=== PATIENT | male | born 2000 | race Caucasian/White ===

== ENCOUNTER 2018-12-23 23:23 | Emergency (ER) | payer MEDICAID, SELFPAY ==
[2018-12-23 23:26] VITALS: BP 140/64; PULSE 89; RESP 16; TEMP 36.7; O2SAT 97
--- NOTE | 2018-12-23 23:37 | W.ED.GENAD ---
Discharge Plan Disposition Patient Disposition: HOME Condition: Improving Discharge Details Chief Complaint: GenMedical Clinical Impression: Visit for wound check [facility]: Rory Hylton Home Meds and New Rx's Prescriptions: New amoxicillin-pot clavulanate 875-125 mg tablet 1 tab PO BID 7 Days Qty: 14 RF: 0 Discharge Instructions Instructions: Wound Healing and Your Diet (ED) Additional Instructions: Follow-up in surgery clinic on January 02 as planned. Take Augmentin as prescribed. Daily dressing changes as we discussed. Return for recurrent drainage, involvement of fever, or any other acute concerns Medical Decision Making 18-year-old male presents from [facility] where he is in school. He underwent pilonidal cyst excision he states in mid October with Dr Patton at [facility]. He states he then fell down stairs on November 13 and shiela was comparing pictures of his surgical incision with his girlfriend mother who is a nurse who recommended he seek evaluation. He is well-appearing with normal vital signs. He has a surgical incision which is healing by secondary intention without evidence of abscess. He describes having some drainage at home which is not present at this time. He feels reasonable to cover him for developing cellulitis but do feel that the incision appears to be healing well. He has follow-up planned in surgery clinic on January 02. Discussed with him daily dressing changes at home, 7 days of Augmentin. He is stable for discharge at this time and understands return precautions. HPI General Mode of arrival: ambulatory. Date/Time Provider Initiated Documentation: 12/23/18 23:24. Limitations to Documentation: no limitations. Information obtained by: patient. History of Present Illness 18 year old M presents to the emergency department with the chief complaint of Wound check after fallNovember 13, described as mild, Quality is described as dull, and is localized to the buttocks. Patient reports no radiation. Patient started experiencing this day(s) and it has been intermittent. No relieving factors improve symptom(s), No exacerbating factors reported . Patient notes denies fever/chills. Patient did receive the following treatments prior to arrival, none Related Data Home Medications Medication Instructions Recorded Confirmed amoxicillin-pot clavulanate 1 tab PO BID 7 Days #14 tab 12/23/18 Previous Rx's Medication Instructions Recorded amoxicillin-pot clavulanate 1 tab PO BID 7 Days #14 tab 12/23/18 Allergies Allergy/AdvReac Type Severity Reaction Status Date / Time No Known Allergies Allergy Unverified 10/18/17 01:26 General Stated Complaint: GenMedical MERLE: 3 Review of Systems Review of Systems 6 systems reviewed and otherwise neg PFSH Social History Smoking/Tobacco Use Status: Never Exam Narrative Exam Narrative: GEN: awake, alert, oriented 3. Pleasant, well groomed, interactive. HEAD: Normocephalic, atraumatic ENT: Mucous membranes moist, oropharynx unremarkable, External ear exam unremarkable EYES: PERRL, EOMI NECK: Full ROM, no NIKKI, no menigismus ABDOMEN: Soft, nontender, no mass. +Bowel sounds. There is right sided perianal curvilinear surgical incision healing by secondary intention with good granulation tissue. No fluctuance, erythema, tenderness. EXT: Full ROM, no edema, no rash Neuro: Grossly normal neurologic exam, conversant, interactive. Psych: Speech fluent, thoughts congruent, affect normal Course Vital Signs Temperature 36.7 C 12/23/18 23:26 Pulse 89 12/23/18 23:26 Respiratory Rate 16 12/23/18 23:26 Blood Pressure 140/64 12/23/18 23:26 Pulse Oximetry 97 12/23/18 23:26 Temperature 36.7 C 12/23/18 23:26 Temperature Source Temporal Artery Scan 12/23/18 23:26 Pulse 89 12/23/18 23:26 Respiratory Rate 16 12/23/18 23:26 Respiratory Effort 12/23/18 23:26 Blood Pressure 140/64 12/23/18 23:26 Pulse Oximetry 97 12/23/18 23:26 Oxygen Delivery Method Room Air 12/23/18 23:26 Oxygen Flow Rate 0 12/23/18 23:26
--- NOTE | 2018-12-23 23:41 | ED.GENADUL_ITS ---
Discharge Plan Disposition Patient Disposition: HOME Condition: Improving Discharge Details Chief Complaint: GenMedical Clinical Impression: Visit for wound check [facility]: Rory Hylton Home Meds and New Rx's Prescriptions: New amoxicillin-pot clavulanate 875-125 mg tablet 1 tab PO BID 7 Days Qty: 14 RF: 0 Discharge Instructions Instructions: Wound Healing and Your Diet (ED) Additional Instructions: Follow-up in surgery clinic on January 02 as planned. Take Augmentin as prescribed. Daily dressing changes as we discussed. Return for recurrent drainage, involvement of fever, or any other acute concerns Medical Decision Making 18-year-old male presents from [facility] where he is in school. He underwent pilonidal cyst excision he states in mid October with Dr Patton at [facility]. He states he then fell down stairs on November 13 and shiela was comparing pictures of his surgical incision with his girlfriend mother who is a nurse who recommended he seek evaluation. He is well-appearing with normal vital signs. He has a surgical incision which is healing by secondary intention without evidence of abscess. He describes having some drainage at home which is not present at this time. He feels reasonable to cover him for developing cellulitis but do feel that the incision appears to be healing well. He has follow-up planned in surgery clinic on January 02. Discussed with him daily dressing changes at home, 7 days of Augmentin. He is stable for discharge at this time and understands return precautions. HPI General Mode of arrival: ambulatory . Date/Time Provider Initiated Documentation: 12/23/18 23:24 . Limitations to Documentation: no limitations . Information obtained by: patient . History of Present Illness 18 year old M presents to the emergency department with the chief complaint of Wound check after fallNovember 13, described as mild, Quality is described as dull, and is localized to the buttocks. Patient reports no radiation. Patient started experiencing this day(s) and it has been intermittent. No relieving factors improve symptom(s), No exacerbating factors reported . Patient notes denies fever/chills. Patient did receive the following treatments prior to [facility], none Related Data Home Medications Medication Instructions Recorded Confirmed amoxicillin-pot clavulanate 1 tab PO BID 7 Days #14 tab 12/23/18 Previous Rx's Medication Instructions Recorded amoxicillin-pot clavulanate 1 tab PO BID 7 Days #14 tab 12/23/18 Allergies Allergy/AdvReac Type Severity Reaction Status Date / Time No Known Allergies Allergy Unverified 10/18/17 01:26 General Stated Complaint: GenMedical MERLE: 3 Review of Systems Review of Systems 6 systems reviewed and otherwise neg [facility] Social History Smoking/Tobacco Use Status: Never Exam Narrative Exam Narrative: GEN: awake, alert, oriented 3. Pleasant, well groomed, interactive. HEAD: Normocephalic, atraumatic ENT: Mucous membranes moist, oropharynx unremarkable, External ear exam unremarkable EYES: PERRL, EOMI NECK: Full ROM, no NIKKI, no menigismus ABDOMEN: Soft, nontender, no mass. +Bowel sounds. There is right sided perianal curvilinear surgical incision healing by secondary intention with good granulation tissue. No fluctuance, erythema, tenderness. EXT: Full ROM, no edema, no rash Neuro: Grossly normal neurologic exam, conversant, interactive. Psych: Speech fluent, thoughts congruent, affect normal Course Vital Signs Temperature 36.7 C 12/23/18 23:26 Pulse 89 12/23/18 23:26 Respiratory Rate 16 12/23/18 23:26 Blood Pressure 140/64 12/23/18 23:26 Pulse Oximetry 97 12/23/18 23:26 Temperature 36.7 C 12/23/18 23:26 Temperature Source Temporal Artery Scan 12/23/18 23:26 Pulse 89 12/23/18 23:26 Respiratory Rate 16 12/23/18 23:26 Respiratory Effort 12/23/18 23:26 Blood Pressure 140/64 12/23/18 23:26 Pulse Oximetry 97 12/23/18 23:26 Oxygen Delivery Method Room Air 12/23/18 23:26 Oxygen Flow Rate 0 12/23/18 23:26
[2018-12-23] MEDS: Amoxicillin 875/Clav. 125 TAB PO (23:45)
== END 2018-12-23 23:47 | disposition home or self-care (01) ==
LOC: ER 23:52
PROVIDERS: Emergency Provider Emergency Medicine
DX: L03.317 Cellulitis of buttock (principal)
CPT/HCPCS: 99283

== ENCOUNTER 2019-09-09 15:01 | Outpatient (CLI) | payer MEDICAID, SELFPAY ==
[2019-09-09 15:57] LABS: Abs Immature Grans 0.01 k/cumm (0.0-0.09); Absolute Basophil Count 0.02 k/cumm (0.0-0.2); Absolute Eosinophil Count 0.07 k/cumm (0.0-0.7); Absolute Lymphocyte Count 1.43 k/cumm (1.2-3.4); Absolute Neutrophil Count 3.08 k/cumm (1.2-6.7); Basophils % 0.4; Eosinophils % 1.3; HCT 42.6 % (40.0-50.0); HGB 14.7 g/dL (13.5-17.5); Immature Grans % 0.2; Lymphocytes % 27.4; Mean Corp. HGB Concentration 34.5 g/dL (32.0-36.0); Mean Corpuscular Hemoglobin 31.3 pg (27.0-33.0); Mean Corpuscular Volume 90.6 fL (80-95); Monocytes % 11.5; Neutrophils % 59.2; Platelet Count 211 x1000/uL (130-400); RBC Distribution Width 12.6 % (11.8-14.1); White Blood Cell Count 5.21 k/cumm (4.4-10.8)
[2019-09-09 16:48] LABS: BUN 16 mg/dL (7-18); CREATININE 1.09 mg/dL (0.70-1.30); Calcium 9.2 mg/dL (8.5-10.1); Chloride 107 mmol/L (98-107); Glucose 104 mg/dL (70-100); Potassium 4.1 mmol/L (3.5-5.1); Sodium 144 mmol/L (136-145); TSH 2.11 uIU/mL (0.36-3.74)
== END 2019-09-09 15:21 ==
PROVIDERS: Visit Provider Physician Assistant
DX: R55 Syncope and collapse (principal)
CPT/HCPCS: 36415; 80048; 84443; 85025

== ENCOUNTER 2019-10-25 21:02 | Emergency (ER) | payer MEDICAID, SELFPAY ==
[2019-10-25 21:29] VITALS: BP 110/80; PULSE 96; RESP 16; TEMP 36.4; O2SAT 97
--- NOTE | 2019-10-25 21:39 | ED.GENADUL_ITS ---
Discharge Plan Disposition Patient Disposition: HOME Discharge Details Chief Complaint: Sorethroat Clinical Impression: Pharyngitis, URI (upper respiratory infection) Primary Care Provider: Gilberto Rosario ED Provider: Denzel Henderson Discharge Instructions Instructions: Pharyngitis (ED), Upper Respiratory Infection (ED) Additional Instructions: Please drink plenty of fluids to stay hydrated. Please take ibuprofen over the counter. Take 600mg by mouth every 6 hours as needed for pain. Please follow-up with your primary care physician. Return to the ER for any worsening or new concerning symptoms. Referrals: Gilberto Rosario [Primary Care Provider] - Medical Decision Making 18yo m here with sore throat, fevers, fatigue. No meningeal signs. No signs of deep space infection. Vitals wnl. Rapid strep negative. [place] screen negative. Suspect viral infection. Usual and customary discharge instructions provided. HPI General Mode of arrival: ambulatory . Date/Time Provider Initiated Documentation: 10/25/19 21:04 . Limitations to Documentation: no limitations . Information obtained by: patient . HPI Narrative: 18yo m here with cc sore throat. Sore throat started 5 days ago and has persisted. No modifiers. He has associated fatigue, intermittent fever, and mild HAs. No swollen glands. Feels like strep throat which he has had in the past. Related Data Allergies Allergy/AdvReac Type Severity Reaction Status Date / Time No Known Allergies Allergy Unverified 10/18/17 01:26 General Stated Complaint: Sorethroat MERLE: 4 Review of Systems ENT Ears, Nose, Mouth, and Throat: Reports as per HPI Respiratory Respiratory: Reports cough Integumentary/Breasts Skin/Breast: Reports rash (fine circular on abdomen) [facility] Social History Smoking/Tobacco Use Status: Never Drug use: Never Do you feel safe in your relationship?: Yes Exam Const General: cooperative, comfortable and no acute distress HENMT Mouth: moist mucous membranes Throat: uvula midline and posterior oropharynx abnormal erythema Other: no trismus Eyes Conjunctivae: normal conjunctivae Neck Neck: no lymphadenopathy, trachea midline and supple Resp Auscultation: clear to auscultation bilaterally, no rales, no rhonchi and no wheezes Cardio Jugular venous pressure: no JVD Rate: regular rate and not tachycardic Rhythm: regular rhythm GI Palpation: soft, not firm, no guarding, no masses, not rigid and nontender Skin Rashes: rashes noted (few cicular macules, giraldo on abd) Neuro General: alert, awake, oriented x3 and tone normal Extrem General: no edema Course Vital Signs Vital signs: Vital Signs Temperature 36.4 C L 10/25/19 21:29 Pulse 96 H 10/25/19 21:29 Respiratory Rate 16 10/25/19 21:29 Blood Pressure 110/80 10/25/19 21:29 Pulse Oximetry 97 10/25/19 21:29 Temperature 36.4 C L 10/25/19 21:29 Temperature Source Skin 10/25/19 21:29 Pulse 96 H 10/25/19 21:29 Respiratory Rate 16 10/25/19 21:29 Respiratory Effort 10/25/19 21:29 Blood Pressure 110/80 10/25/19 21:29 Pulse Oximetry 97 10/25/19 21:29 Oxygen Delivery Method Room Air 10/25/19 21:29 Oxygen Flow Rate 0 10/25/19 21:29 Pain Level 4 10/25/19 21:29
--- NOTE | 2019-10-25 21:46 | NUR.NOTE ---
Nursing Note:Lab in room for blood draw
[2019-10-25 22:28] LABS: Mono Screening Negative (Negative)
[2019-10-25 22:53] VITALS: BP 113/67; PULSE 84; RESP 16; O2SAT 96
== END 2019-10-25 23:00 | disposition home or self-care (01) ==
PROVIDERS: Emergency Provider Student in an Organized Health Care Education/Training Program; PCP Pediatrics
DX: J02.9 Acute pharyngitis, unspecified (principal); J06.9 Acute upper respiratory infection, unspecified
CPT/HCPCS: 99282; 86308

== ENCOUNTER 2020-12-21 15:02 | Emergency (ER) | payer OTHER, SELFPAY ==
[2020-12-21 15:11] VITALS: BP 135/76; PULSE 96; RESP 16; TEMP 36.7; O2SAT 94
--- NOTE | 2020-12-21 15:20 | ED.GENADUL_ITS ---
Discharge Plan Disposition Patient Disposition: HOME Condition: Stable Discharge Details Clinical Impression: Sore throat Primary Care Provider: Gilberto Rosario ED Provider: Lonnie Rivas Home Meds and New Rx's Prescriptions: No Action No Known Home Meds RF: 0 Discharge Instructions Additional Instructions: your strep test was negative and it looks like you have inflammed papilla of the tongue this usually resolves within a week you can take 1000mg tylenol an 600mg ibuprofen every 6 hours for pain as needed if you have severe worsening pain, inability to swallow liquids or difficulty breathing return to the emergency department Medical Decision Making 20 yo male comes in with sore throat starting this morning without fevers, difficulty swallowing or breathing. STates he noticed bumps on his tongue as well. Strep test done prior to my exam negative and he had a negative covid test done this past Sunday and has been isolating from others so doubt covid19. on exam has normal posterior pharynx without exudate or erythema and midline uvula. No pain over hyoid or restricted neck movements, no findings on exam to suggest RPA, mud analysis well logging captain or epiglotitis and no evidence even of pharyngitis. His posterior papilla on his tongue are enlgarged so suspect transient lingual papillitis. Informed him of expected course of this and advised prn tylenol and ibuprofen and return precautions given Differential Diagnosis Differential Diagnosis: pharyngitis, strep, transient lingual papillitis HPI General Mode of arrival: ambulatory . Date/Time Provider Initiated Documentation: 12/21/20 15:03 . Limitations to Documentation: no limitations . Information obtained by: patient . History of Present Illness 20 year old M presents to the emergency department with the chief complaint of sore throat, described as mild, Quality is described as aching, and it has been constant. No relieving factors improve symptom(s), Patient notes no other symptoms.. Patient did receive the following treatments prior to arrival, none Related Data Home Medications Medication Instructions Recorded Confirmed Unknown [No Known Home Meds] 12/21/20 12/21/20 Allergies Allergy/AdvReac Type Severity Reaction Status Date / Time turnips Allergy Mild Hives Uncoded 12/21/20 15:15 flu shot AdvReac Uncoded 12/21/20 15:15 General Stated Complaint: Sorethroat MERLE: 4 Review of Systems All systems reviewed & are unremarkable except as noted in HPI and below Constitutional Constitutional: Denies chills and Denies fever(s) Cardiovascular Cardiovascular: Denies chest pain and Denies dyspnea Respiratory Respiratory: Denies cough and Denies dyspnea Gastrointestinal Gastrointestinal: Denies abdominal pain, Denies nausea and Denies vomiting Musculoskeletal Musculoskeletal: Denies joint swelling PFS Social History Smoking/Tobacco Use Status: Never Smoking risk assessment performed?: Yes Substance use type: does not use Current gender identity: male Do you feel safe at home: Yes Do you feel safe in your relationship?: Yes Exam Const General: no acute distress Orientation: alert HENMT Head: normal to inspection Ears: external ears normal General nose exam: external nose normal Mouth: moist mucous membranes Eyes General: appearance normal, both eyes and all related structures Neck Neck: normal visual inspection Resp Effort & Inspection: normal respiratory effort and able to speak in complete sentences Cardio Rate: regular rate Skin General skin exam: no rashes or lesions noted Neuro General: patient alert and patient oriented x3 Extrem General: normal to inspection Psych Mental Status: mental status grossly normal Course Vital Signs Vital signs: Vital Signs Temperature 36.7 C 12/21/20 15:11 Pulse 96 H 12/21/20 15:11 Respiratory Rate 16 12/21/20 15:11 Blood Pressure 135/76 12/21/20 15:11 Pulse Oximetry 94 12/21/20 15:11 Temperature 36.7 C 12/21/20 15:11 Temperature Source Skin 12/21/20 15:11 Pulse 96 H 12/21/20 15:11 Respiratory Rate 16 12/21/20 15:11 Blood Pressure 135/76 12/21/20 15:11 Blood Pressure Position Sitting 12/21/20 15:11 Pulse Oximetry 94 12/21/20 15:11 Oxygen Delivery Method Room Air 12/21/20 15:11 Oxygen Flow Rate 0 12/21/20 15:11 Pain Level 3 12/21/20 15:11
[2020-12-21] MEDS: Dexamethasone 4 MG TAB 10 MG PO (15:26)
== END 2020-12-21 15:26 | disposition home or self-care (01) ==
PROVIDERS: Emergency Provider Emergency Medicine; PCP Pediatrics
DX: J02.8 Acute pharyngitis due to other specified organisms (principal); K14.0 Glossitis
CPT/HCPCS: 87880; 99283; 87081; J8540

== ENCOUNTER 2023-10-25 20:12 | Emergency (ER) | payer OTHER, SELFPAY ==
[2023-10-25 20:25] VITALS: BP 120/93; PULSE 106; RESP 16; TEMP 38.1; O2SAT 94
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
[2023-10-25] MEDS: Acetaminophen 500 MG TAB 1000 MG PO (20:52)
[2023-10-25] MEDS: Ketorolac 10 MG TAB PO (20:52)
[2023-10-25] MEDS: Cyclobenzaprine 10 MG TAB PO (20:52)
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
[2023-10-25] MEDS: Amoxicillin 875/Clav. 125 TAB PO (22:15)
[2023-10-25] MEDS: Azithromycin 250 MG TAB 500 MG PO (22:15)
[2023-10-25 22:17] VITALS: BP 114/80; PULSE 93; RESP 18; TEMP 36.5; O2SAT 95
== END 2023-10-25 22:24 | disposition home or self-care (01) ==
PROVIDERS: Emergency Provider Physician Assistant; PCP Pediatrics
DX: M54.2 Cervicalgia (principal); M54.9 Dorsalgia, unspecified; V48.5XXA Car driver injured in noncollision transport accident in traffic accident, initial encounter; R05.9 Cough, unspecified; J18.9 Pneumonia, unspecified organism
CPT/HCPCS: 87637; 99283; 71046

== ENCOUNTER 2023-11-27 15:09 | Outpatient (REF) | payer OTHER, SELFPAY ==
[2023-11-27 16:08] LABS: Abs Immature Grans 0.01 10^3/uL (0.0-0.06); Absolute Basophil Count 0.03 10^3/uL (0.0-0.2); Absolute Eosinophil Count 0.07 10^3/uL (0.0-0.7); Absolute Lymphocyte Count 2.28 10^3/uL (1.2-3.4); Absolute Neutrophil Count 3.05 10^3/uL (1.2-6.7); Basophils % 0.5; Eosinophils % 1.2; HCT 45.5 % (40.0-50.0); HGB 15.4 g/dL (13.5-17.5); Immature Grans % 0.2; Lymphocytes % 38.4; MCH 30.9 pg (27.0-33.0); MCHC 33.8 % (32.0-36.0); MCV 91 fL (80-95); MPV 11.3 fL (8.0-11.0); Monocytes % 8.4; Neutrophils % 51.3; Platelet Count 205 10^3/uL (130-400); RBC 4.98 10^6/uL (4.36-5.78); RDW 12.2 % (11.8-14.1); RDW-SD 40.6 fL; WBC 5.94 10^3/uL (4.4-10.8)
[2023-11-27 16:44] LABS: ALT 143 U/L (16-63); AST 47 U/L (15-37); Albumin 4.1 g/dL (3.4-5.0); Alkaline Phosphatase 108 U/L (46-116); Anion Gap 8.9 mmol/L (3-11); BUN 13 mg/dL (7-18); CO2 28.1 mmol/L (21.0-32.0); CREATININE 1.1 mg/dL (0.70-1.30); Calcium 9.5 mg/dL (8.5-10.1); Calculated LDL 110 mg/dL (<100); Chloride 106 mmol/L (98-107); Cholesterol 184 mg/dL (<200); Estimated GFR 96.14 (mL/min/1.73m2); Glucose 102 mg/dL (74-106); HDL Cholesterol 47 mg/dL (40-60); Potassium 4.7 mmol/L (3.5-5.1); Sodium 143 mmol/L (136-145); TSH (W/Ref FT4) 2.85 uIU/mL (0.36-3.74); Total Protein 7.2 g/dL (6.4-8.2); Triglyceride 139 mg/dL (<150)
[2023-11-27 16:50] LABS: Vitamin D 25 Total 11.1 ng/mL (30-100)
== END 2023-11-27 15:10 | disposition home or self-care (01) ==
LOC: NCHCN 15:09
PROVIDERS: PCP Pediatrics; Visit Provider Student in an Organized Health Care Education/Training Program
DX: R53.83 Other fatigue (principal); E55.9 Vitamin D deficiency, unspecified
CPT/HCPCS: 80053; 80061; 82306; 84443; 85025

== ENCOUNTER 2024-03-12 05:06 | Outpatient (CLI) | payer OTHER, SELFPAY ==
[2024-03-12 20:47] LABS: Hepatitis A Antibody IgM Negative (Negative); Hepatitis B Core Antibody Negative (Negative); Hepatitis B surface Ag Negative (Negative); Hepatitis C Ab w Rflx HCV PCR Negative (Negative)
[2024-03-13 10:44] LABS: Alpha 1 Antitrypsin,Serum 83 mg/dL (90-200)
== END 2024-03-12 05:07 | disposition home or self-care (01) ==
LOC: LBO 05:06
PROVIDERS: PCP Pediatrics; Visit Provider Student in an Organized Health Care Education/Training Program
DX: R74.01 Elevation of levels of liver transaminase levels (principal)
CPT/HCPCS: 36415; 86704; 86709; 86803; 87340; 82103

== ENCOUNTER 2024-03-25 05:49 | Outpatient (CLI) | payer OTHER, SELFPAY ==
[2024-03-25 09:18] LABS: Abs Immature Grans 0.02 10^3/uL (0.0-0.06); Absolute Basophil Count 0.05 10^3/uL (0.0-0.2); Absolute Eosinophil Count 0.09 10^3/uL (0.0-0.7); Absolute Monocyte Count 0.52 10^3/uL (0.1-0.8); Basophils % 0.8 %; Eosinophils % 1.5 %; HCT 47.3 % (40.0-50.0); HGB 16.2 g/dL (13.5-17.5); Immature Grans % 0.3 %; Lymphocytes % 36.2 %; MCH 31.6 pg (27.0-33.0); MCHC 34.2 % (32.0-36.0); MCV 92 fL (80-95); MPV 10.2 fL (8.0-11.0); Monocytes % 8.6 %; Neutrophils % 52.6 %; Platelet Count 203 10^3/uL (130-400); RBC 5.13 10^6/uL (4.36-5.78); RDW 12.3 % (11.8-14.1); RDW-SD 41.5 fL; WBC 6.08 10^3/uL (4.4-10.8)
[2024-03-25 10:12] LABS: ALT 117 U/L (16-63); AST 42 U/L (15-37); Albumin 4.2 g/dL (3.4-5.0); Alkaline Phosphatase 106 U/L (46-116); Anion Gap 9.2 mmol/L (3-11); BUN 16 mg/dL (7-18); Bilirubin, Total 1.9 mg/dL (0.2-1.0); CO2 29.8 mmol/L (21.0-32.0); Chloride 106 mmol/L (98-107); Estimated GFR 107.12 (mL/min/1.73m2); Ferritin 411 ng/mL (26-388); Glucose 101 mg/dL (74-106); Potassium 4.2 mmol/L (3.5-5.1); Sodium 145 mmol/L (136-145); Total Protein 7.3 g/dL (6.4-8.2)
[2024-03-25 10:21] LABS: Iron 211 ug/dL (65-175); Total Iron Binding Capacity 271 ug/dL (250-450); Transferrin Sat 78 % (20-55)
[2024-04-01 16:37] LABS: Alpha-1-Antitrypsin 89 mg/dL (100 - 190)
== END 2024-03-25 05:50 | disposition home or self-care (01) ==
LOC: LBO 05:49
PROVIDERS: PCP Pediatrics; Visit Provider Student in an Organized Health Care Education/Training Program
DX: E88.01 Alpha-1-antitrypsin deficiency (principal); R16.1 Splenomegaly, not elsewhere classified
CPT/HCPCS: 36415; 80053; 82103; 82542; 82728; 83540; 83550; 85025

== ENCOUNTER 2024-03-31 04:58 | Outpatient (CLI) | payer OTHER, SELFPAY ==
[2024-04-03 10:17] LABS: Result Summary NEGATIVE; Specimen WB Whole Blood
== END 2024-03-31 04:59 | disposition home or self-care (01) ==
PROVIDERS: PCP Pediatrics; Visit Provider Student in an Organized Health Care Education/Training Program
DX: E83.10 Disorder of iron metabolism, unspecified (principal)
CPT/HCPCS: 36415; 81256

== ENCOUNTER 2024-12-03 11:16 | Outpatient (REF) | payer OTHER, SELFPAY ==
[2024-12-04 09:49] LABS: HIV-1/2 Ag & Ab Screen Negative (Negative)
== END 2024-12-03 11:17 | disposition home or self-care (01) ==
LOC: NCHCN 11:16
PROVIDERS: PCP Pediatrics; Visit Provider Student in an Organized Health Care Education/Training Program
DX: Z11.4 Encounter for screening for human immunodeficiency virus [HIV] (principal)
CPT/HCPCS: 87389

== ENCOUNTER 2025-01-13 19:58 | Outpatient (REF) | payer OTHER, SELFPAY ==
[2025-01-13 21:11] LABS: Abs Immature Grans 0.02 10^3/uL (0.0-0.06); Absolute Basophil Count 0.03 10^3/uL (0.0-0.2); Absolute Eosinophil Count 0.05 10^3/uL (0.0-0.7); Absolute Lymphocyte Count 0.78 10^3/uL (1.2-3.4); Absolute Monocyte Count 0.45 10^3/uL (0.1-0.8); Absolute Neutrophil Count 8.77 10^3/uL (1.2-6.7); Basophils % 0.3 %; Eosinophils % 0.5 %; HGB 16.9 g/dL (13.5-17.5); Immature Grans % 0.2 %; Lymphocytes % 7.7 %; MCHC 35.2 % (32.0-36.0); MCV 88 fL (80-95); MPV 10.9 fL (8.0-11.0); Monocytes % 4.5 %; Neutrophils % 86.8 %; Platelet Count 226 10^3/uL (130-400); RBC 5.45 10^6/uL (4.36-5.78); RDW 12.2 % (11.8-14.1); RDW-SD 38.8 fL
[2025-01-13 21:42] LABS: ALT 87 U/L (16-63); AST 31 U/L (15-37); Albumin 4.3 g/dL (3.4-5.0); Alkaline Phosphatase 128 U/L (46-116); Anion Gap 11.8 mmol/L (3-11); BUN 15 mg/dL (7-18); Bilirubin, Total 1.71 mg/dL (0.2-1.0); CO2 24.2 mmol/L (21.0-32.0); CREATININE 1.2 mg/dL (0.70-1.30); Calcium 9.2 mg/dL (8.5-10.1); Chloride 106 mmol/L (98-107); Estimated GFR 85.53 (mL/min/1.73m2); Glucose 104 mg/dL (74-106); Potassium 4.6 mmol/L (3.5-5.1); Sodium 142 mmol/L (136-145); Total Protein 7.6 g/dL (6.4-8.2)
[2025-01-13 21:48] LABS: COVID-19 PCR Negative (Negative); Influenza A PCR Negative (Negative); Influenza B PCR Negative (Negative); RSV PCR Negative (Negative)
[2025-01-13 21:59] LABS: Source Nasopharynx
== END 2025-01-13 19:59 | disposition home or self-care (01) ==
LOC: LBN 19:58
PROVIDERS: PCP Student in an Organized Health Care Education/Training Program; Visit Provider Nurse Practitioner Family
DX: R19.7 Diarrhea, unspecified (principal)
CPT/HCPCS: 80053; 87637; 85025

== ENCOUNTER 2025-01-14 09:38 | Outpatient (REF) | payer OTHER, SELFPAY ==
[2025-01-14 12:02] LABS: C Diff PCR Negative (Negative)
== END 2025-01-14 09:39 | disposition home or self-care (01) ==
LOC: LBN 09:38
PROVIDERS: PCP Student in an Organized Health Care Education/Training Program; Visit Provider Nurse Practitioner Family
DX: R19.7 Diarrhea, unspecified (principal)
CPT/HCPCS: 87493; 82272

== ENCOUNTER 2025-01-20 16:22 | Outpatient (CLI) | payer OTHER, SELFPAY ==
--- NOTE | 2025-01-20 | DI.RAD_ITS ---
Exam(s) XR CHEST 2V PA LATERAL EXAM: XR CHEST 2V PA LATERAL CLINICAL HISTORY: Cough R05.9. TECHNIQUE: 2D digital imaging was performed. COMPARISON: CR,XR XR CHEST 2V PA LATERAL from 10/25/2023 FINDINGS: 2 views: Heart size is upper normal. The mediastinum is not widened. Lungs are clear. No infiltrates nor pleural effusions. Accessory azygos lobe on the right is again noted. IMPRESSION: No acute pulmonary findings. DATA REPOSITORY: RADIATION DOSE DELIVERED:
== END 2025-01-20 16:42 ==
LOC: DI 16:24
PROVIDERS: PCP Student in an Organized Health Care Education/Training Program; Visit Provider Student in an Organized Health Care Education/Training Program
DX: R05.9 Cough, unspecified (principal)
CPT/HCPCS: 71046

== ENCOUNTER 2025-02-24 02:42 | Outpatient (CLI) | payer OTHER, SELFPAY ==
[2025-02-24] MEDS: Levalbuterol HFA 15 GM INH 4 PUFF IH (15:50)
[2025-02-24] MEDS: Inhaler, Assist Device 1 EACH MC (15:50)
--- NOTE | 2025-03-11 10:11 | W.PFT ---
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 No significant bronchodilator response. Lung Volumes: Normal lung volumes Diffusion Capacity: Normal diffusion Airway Pressure: Normal airways resistance Impression Normal pulmonary function testing Clinical Correlation therefore is recommended.
== END 2025-02-24 02:43 | disposition home or self-care (01) ==
LOC: RT 02:42
PROVIDERS: PCP Student in an Organized Health Care Education/Training Program; Visit Provider Student in an Organized Health Care Education/Training Program
DX: Z83.49 Family history of other endocrine, nutritional and metabolic diseases (principal); Z13.83 Encounter for screening for respiratory disorder NEC
CPT/HCPCS: 94060; 94726; 94729

== ENCOUNTER → 2025-10-28 14:42 | Outpatient (CLI) | payer OTHER, SELFPAY ==
--- NOTE | 2025-10-28 | DI.RAD_ITS ---
Exam(s) XR CHEST 2V PA LATERAL EXAM: XR CHEST 2V PA LATERAL CLINICAL HISTORY: CHEST PAIN ON BREATHING R07.1 TECHNIQUE: 2D digital imaging was performed. Two views. COMPARISON: CR XR CHEST 2V PA LATERAL from 01/20/2025 FINDINGS: HEART: Normal size. Aorta: Not dilated. PULMONARY VASCULATURE: Normal. MEDIASTINUM: Unremarkable. LUNGS: Clear. There is an azygos lobe, normal variant. PLEURAL SPACE: No pleural effusion or pneumothorax. BONE:Unremarkable for age. SOFT TISSUES: Unremarkable. IMPRESSION: No acute abnormality. DATA REPOSITORY: RADIATION DOSE DELIVERED:
== END ==
LOC: DI 14:43
PROVIDERS: PCP Student in an Organized Health Care Education/Training Program; Visit Provider Student in an Organized Health Care Education/Training Program
DX: R07.1 Chest pain on breathing (principal)
CPT/HCPCS: 71046